=== PATIENT | female | born 1975 | race African-American/Black ===

== ENCOUNTER → 2016-12-06 | Outpatient (CLI) | payer OTHER ==
[~2016-12-06] VITALS: Ht 172.7 cm; Wt 95.3 kg
[~2016-12-06] MED LIST: CLONAZEPAM0.5 M1 PO; IBUPROFEN800 MG PO; MIRENA52 MG IY; MOBIC15 MG PO; PAXIL20 M1 PO; PRILOSEC20 MG PO; RECTICARE30 GM TP
== END | disposition home or self-care (01) ==
LOC: AMB 09:00
DX: K59.04 Chronic idiopathic constipation (principal); K29.80 Duodenitis without bleeding; K44.9 Diaphragmatic hernia without obstruction or gangrene; R14.0 Abdominal distension (gaseous); E66.9 Obesity, unspecified; Z68.32 Body mass index [BMI] 32.0-32.9, adult; I86.8 Varicose veins of other specified sites; Z83.0 Family history of human immunodeficiency virus [HIV] disease; Z91.040 Latex allergy status; Z91.09 Other allergy status, other than to drugs and biological substances
CPT/HCPCS: 88305; 88342 TC

== ENCOUNTER 2017-10-13 10:12 | Day surgery (SDC) | payer OTHER ==
[~2017-10-13] VITALS: Ht 172.7 cm; Wt 106.0 kg
[~2017-10-13 10:12] MED LIST changes: +ADVIL,NUPRIN,M200 MG PO; +GLUCOSAMINE &1 EACH PO; -IBUPROFEN800 MG PO; +MIRENA1 EACH IY; -MIRENA52 MG IY
[2017-10-13 10:39] VITALS: BP 133/63
[2017-10-13] MEDS ORDERED: HYDROCODON-ACE1 EAC7 PO (13:16)
[2017-10-13 14:26] VITALS: BP 124/76
[2017-10-13 15:23] VITALS: BP 131/81
== END 2017-10-13 15:45 | disposition home or self-care (01) ==
LOC: SDC 10:12
DX: N92.1 Excessive and frequent menstruation with irregular cycle (principal); D25.0 Submucous leiomyoma of uterus; Z30.432 Encounter for removal of intrauterine contraceptive device; N93.8 Other specified abnormal uterine and vaginal bleeding; N94.6 Dysmenorrhea, unspecified; E66.9 Obesity, unspecified; Z68.35 Body mass index [BMI] 35.0-35.9, adult; N39.3 Stress incontinence (female) (male); I83.90 Asymptomatic varicose veins of unspecified lower extremity; Z83.0 Family history of human immunodeficiency virus [HIV] disease
CPT/HCPCS: 88305; J0690; J1100; J1170; J1885; J2250; J2405; J3010